=== PATIENT | female | born 1965 | race Caucasian/White ===

== ENCOUNTER 2016-10-06 18:47 | Emergency (ER) | payer MEDICAID, OTHER ==
[~2016-10-06] VITALS: Ht 167.6 cm; Wt 74.0 kg
[2016-10-06 19:45] VITALS: BP 116/82
[2016-10-06] MEDS ORDERED: ALBUTEROL/IPRATROPIUM 2.5MG/0.5MG, 3 ML ONE ×2 (19:54→20:05)
[2016-10-06] MEDS: ALBUTEROL/IPRATROPIUM 2.5MG/0.5MG, 3 ML NPPB SCH ×2 (20:03→20:09)
[2016-10-06 20:20] LABS: HEMATOCRIT 45.8 % (34.6-47.8); HEMOGLOBIN 15.5 g/dL (11.7-16.4); WHITE BLOOD COUNT 7.8 x10^3/uL (3.4-10)
[2016-10-06 20:29] LABS: BLOOD UREA NITROGEN 11 mg/dL (7-18)
== END 2016-10-06 21:14 | disposition home or self-care (01) ==
LOC: ED 21:07
DX: J45.31 Mild persistent asthma with (acute) exacerbation (principal); Z87.891 Personal history of nicotine dependence
CPT/HCPCS: 36415; 71020; 80048; 82040; 85025; 93005; 94640; 99285; J7512; J7620

== ENCOUNTER 2018-02-23 18:04 | Emergency (ER) | payer MEDICAID ==
[~2018-02-23] VITALS: Ht 167.6 cm; Wt 69.4 kg
[2018-02-23] MEDS ORDERED: ALBUTEROL/IPRATROPIUM 2.5MG/0.5MG, 3 ML NPPB ONE (18:30)
[2018-02-23] MEDS ORDERED: ALBUTEROL/IPRATROPIUM 2.5MG/0.5MG, 3 ML ONE (18:51)
[2018-02-23] MEDS ORDERED: ALBUTEROL/IPRATROPIUM 2.5MG/0.5MG, 3 ML NPPB SCH (19:00)
[2018-02-23] MEDS ORDERED: ALBUTEROL/IPRATROPIUM 2.5MG/0.5MG, 3 ML NPPB PRN (19:00)
[2018-02-23] MEDS ORDERED: INHALER (19:01)
[2018-02-23 19:11] VITALS: BP 102/47
[2018-02-23] MEDS ORDERED: BUDESONIDE 0.5 MG/2 ML INHA ONE (19:19)
[2018-02-23] MEDS ORDERED: ALBUTEROL SULFATE 2.5MG/0.5ML ONE (19:19)
[2018-02-23] MEDS ORDERED: BUDESONIDE 0.5 MG/2 ML INHA INH ONE (19:30)
[2018-02-23] MEDS ORDERED: ALBUTEROL SULFATE 2.5 MG/3 ML NPPB PRN (19:30)
== END 2018-02-23 20:38 | disposition home or self-care (01) ==
LOC: ED 20:32
DX: J45.41 Moderate persistent asthma with (acute) exacerbation (principal); Z87.891 Personal history of nicotine dependence
CPT/HCPCS: 71046; 94640; 99284; J7512; J7613; J7620

== ENCOUNTER 2018-05-23 23:45 | Emergency (ER) | payer MEDICAID ==
[~2018-05-23] VITALS: Ht 167.6 cm; Wt 70.1 kg
[~2018-05-23 23:45] MED LIST: INHALER
--- NOTE | 2018-05-24 00:56 | NUR ---
LOW BACK PAIN "I HURT MYSELF AT WORK YESTERDAY." PT ALSO REPORTS A COUGH "I HAVE ASHTMA. I CAN TASTE THE INFECTION." PT REPORTS SHE WAS ABX PER TRIAGE NOTE
[2018-05-24] MEDS ORDERED: KETOROLAC 30 MG/1 ML ONE (01:21)
[2018-05-24] MEDS ORDERED: CYCLOBENZAPRINE 10 MG TABLET ONE (01:21)
[2018-05-24] MEDS ORDERED: HYDROcodone/APAP 5/325 TABLET ONE (01:22)
[2018-05-24 01:27] VITALS: BP 106/81
[2018-05-24] MEDS ORDERED: CYCLOBENZAPRINE 10 MG TABLET PO ONE (01:30)
[2018-05-24] MEDS ORDERED: KETOROLAC 30 MG/1 ML IM ONE (01:30)
[2018-05-24] MEDS ORDERED: HYDROcodone/APAP 5/325 TABLET PO ONE (01:30)
== END 2018-05-24 02:10 | disposition home or self-care (01) ==
LOC: ED 05-24 01:10
DX: S39.012A Strain of muscle, fascia and tendon of lower back, initial encounter (principal); J45.909 Unspecified asthma, uncomplicated; X58.XXXA Exposure to other specified factors, initial encounter; Y93.89 Activity, other specified; Y92.89 Other specified places as the place of occurrence of the external cause; Y99.8 Other external cause status
CPT/HCPCS: 96372; 99283; J1885

== ENCOUNTER 2018-09-09 05:47 | Emergency (ER) | payer MEDICAID ==
[~2018-09-09] VITALS: Ht 167.6 cm; Wt 67.7 kg
[2018-09-09 05:48] VITALS: BP 131/87
[2018-09-09] MEDS ORDERED: PROPARACAINE OPHTH 0.5%, 15ML ONE (06:15)
[2018-09-09] MEDS ORDERED: FLUORESCEIN OPHTHALMIC 1 MG STRIP ONE (06:15)
--- NOTE | 2018-09-09 07:29 | NUR ---
Patient/Caregiver given discharge instructions and they have confirmed that they understand the instructions. Patient ambulatory with steady gait. PT WITH ALL BELONGINGS ON D/C
== END 2018-09-09 07:30 | disposition home or self-care (01) ==
LOC: ED 06:10
DX: H10.31 Unspecified acute conjunctivitis, right eye (principal); H57.11 Ocular pain, right eye
CPT/HCPCS: 99282

== ENCOUNTER 2019-01-19 12:22 | Emergency (ER) | payer MEDICAID ==
[~2019-01-19] VITALS: Ht 165.1 cm; Wt 68.8 kg
[2019-01-19 12:29] VITALS: BP 116/65
--- NOTE | 2019-01-19 13:08 | NUR ---
IMPROVEMENT ANALYST: PT CALLED FOR ROOM, NO ANSWER
--- NOTE | 2019-01-19 13:20 | NUR ---
BUNDLE SORTER: CALLED FOR ROOM, NO ANSWER
--- NOTE | 2019-01-19 13:50 | NUR ---
auditor in charge relief: called x 3 no answer at this time
== END 2019-01-19 14:10 | disposition left against medical advice (07) ==
LOC: ED 13:50
DX: R06.02 Shortness of breath (principal); Z53.21 Procedure and treatment not carried out due to patient leaving prior to being seen by health care provider
CPT/HCPCS: 93005

== ENCOUNTER 2019-03-12 13:48 | Emergency (ER) | payer SELFPAY ==
[~2019-03-12] VITALS: Ht 167.6 cm; Wt 70.4 kg
[2019-03-12] MEDS ORDERED: albuterol (14:03)
--- NOTE | 2019-03-12 14:03 | NUR ---
Pt presents to ED with c/o worsening of asthma today with no relief from home albuterol nebulizer. Pt states she is out of her rescue inhaler. Pt sitting tripod on gurney with 2 L NC on to maintain pulse ox sats above 90%. Pt states, "I need some time before I can change into the gown." Pt denies cp, n/v/d, diaphoresis, or trauma. Call light within reach.
[2019-03-12] MEDS ORDERED: ALBUTEROL SULFATE 2.5 MG/3 ML ONE (14:17)
--- NOTE | 2019-03-12 14:22 | NUR ---
RT at bedside at this time. Pt connected to diagnostic cardiac sonographer, NIBP cuff, and continous pulse ox monitor. No needs expressed at this time. Call light within reach.
[2019-03-12] MEDS ORDERED: ALBUTEROL SULFATE 2.5 MG/3 ML NPPB ONE (14:30)
--- NOTE | 2019-03-12 14:45 | NUR ---
Pt refusing chest x ray at this time. EDMD aware.
[2019-03-12 15:56] VITALS: BP 134/87
--- NOTE | 2019-03-12 15:56 | NUR ---
Patient given discharge instructions and they have confirmed that they understand the instructions. Patient ambulatory with steady gait. Pt left d/c paperwork, Rx, and all personal belongings. No needs expressed at this time.
== END 2019-03-12 16:04 | disposition home or self-care (01) ==
LOC: ED 15:50
DX: J45.41 Moderate persistent asthma with (acute) exacerbation (principal); B34.9 Viral infection, unspecified; Z87.891 Personal history of nicotine dependence
CPT/HCPCS: 93005; 94640; 99283; J7512; J7613

== ENCOUNTER 2019-03-17 06:15 | Emergency (ER) | payer MEDICAID ==
[~2019-03-17] VITALS: Ht 167.6 cm; Wt 70.7 kg
[~2019-03-17 06:15] MED LIST changes: +albuterol
--- NOTE | 2019-03-17 06:37 | NUR ---
Patient presents to ER with SOB. Patient states she has a hx of asthma. Her SOB started this morning and she does not have any more meds to treat it. She was here on Wednesday for the same. Patient has substernal CP associated with her SOB. She states it feels tight only when she's struggling to breath. Patient is taking shallow breaths. Skin PWD.
--- NOTE | 2019-03-17 06:49 | NUR ---
Gave report to GEOVANNI Francis.
[2019-03-17] MEDS ORDERED: ALBUTEROL/IPRATROPIUM 2.5MG/0.5MG, 3 ML ONE (06:56)
--- NOTE | 2019-03-17 06:57 | NUR ---
RECEIVED BEDSIDE REPORT FROM GEOVANNI JEFF. KIMBERLY. PT SITTING ON [facility]. PER REPORT PT WAS HERE WEDNESDAY FOR SAME, ASTHMA EXACERBATION. PT STATED SHE CAN'T AFFORD HER MEDICATIONS. RT BEDSIDE.
[2019-03-17] MEDS: ALBUTEROL/IPRATROPIUM 2.5MG/0.5MG, 3 ML NPPB SCH ×2 (06:58→06:59)
[2019-03-17] MEDS ORDERED: BUDESONIDE 0.5 MG/2 ML INHA ONE (07:00)
--- NOTE | 2019-03-17 07:25 | NUR ---
PT STATES "I FEEL GREAT AFTER THE TREATMENT. THANK YOU." PT EDUCATED REGARDING CARE CHEST. NADN. NO OTHER NEEDS REQUESTED AT THIS TIME. VSS.
[2019-03-17 07:28] VITALS: BP 142/94
[2019-03-17] MEDS ORDERED: BUDESONIDE 0.5 MG/2 ML INHA INH ONE (07:30)
--- NOTE | 2019-03-17 07:41 | NUR ---
RADIOLOGY REPORTS THAT PT REFUSES CHEST XRAY.
--- NOTE | 2019-03-17 08:51 | NUR ---
late entry for 0841 Patient/Caregiver given discharge instructions and they have confirmed that they understand the instructions. Patient ambulatory with steady gait. pt left with all personal belongings.
== END 2019-03-17 08:52 | disposition home or self-care (01) ==
LOC: ED 06:53
DX: J45.41 Moderate persistent asthma with (acute) exacerbation (principal)
CPT/HCPCS: 94640; 99283; J7512; J7620; J7626

== ENCOUNTER 2019-03-26 12:17 | Emergency (ER) | payer MEDICAID ==
[~2019-03-26] VITALS: Ht 167.6 cm; Wt 70.0 kg
[2019-03-26] MEDS ORDERED: ALBUTEROL/IPRATROPIUM 2.5MG/0.5MG, 3 ML NPPB ONE (13:00)
[2019-03-26 13:28] LABS: RAPID INFLUENZA A Negative (Negative); RAPID INFLUENZA B Negative (Negative)
[2019-03-26] MEDS ORDERED: ALBUTEROL/IPRATROPIUM 2.5MG/0.5MG, 3 ML ONE (13:39)
[2019-03-26 13:56] VITALS: BP 98/63
--- NOTE | 2019-03-26 13:57 | NUR ---
TASK RN: PT RESTING IN JERONIMO LEE NOTED. PT YELLING AT RN, "I CAME HERE TO FEEL BETTER AND YOU GUYS HAVEN'T DONE ANYTHING!". RESPIRATIONS EVEN AND UNLABORED, SPO2 >90% ON RA. PT SPEAKING IN FULL SENTENCES WO DIFFICULTY. FRIEND AT BEDSIDE. PT MADE AWARE OF POC (RESULTS/RECHECK); PT DEMONSTRATES UNDERSTANDING.
--- NOTE | 2019-03-26 14:21 | NUR ---
TASK RN: DC EDUCATION PROVIDED, PT DEMONSTRATES UNDERSTANDING. PT AMBUALTED STEADILY TO DC WITH RN AND FRIEND.
== END 2019-03-26 14:23 | disposition home or self-care (01) ==
LOC: ED 13:38
DX: J18.1 Lobar pneumonia, unspecified organism (principal); J98.01 Acute bronchospasm; J45.909 Unspecified asthma, uncomplicated
CPT/HCPCS: 71046; 87400; 94640; 99284

== ENCOUNTER 2019-04-14 19:15 | Emergency (ER) | payer MEDICAID ==
--- NOTE | 2019-04-14 20:06 | NUR ---
NO ANSWER TO TRIAGE CALL
--- NOTE | 2019-04-14 20:14 | NUR ---
NO ANSWER TO TRIAGE CALL X2
--- NOTE | 2019-04-14 20:24 | NUR ---
NO ANSWER TO TRIAGE CALL X3
--- NOTE | 2019-04-14 20:25 | NUR ---
removed from system under "eloped status" after three fail to answer triage call(s)
== END 2019-04-14 20:49 | disposition left against medical advice (07) ==
LOC: ED 20:43
DX: J18.9 Pneumonia, unspecified organism (principal); Z53.21 Procedure and treatment not carried out due to patient leaving prior to being seen by health care provider

== ENCOUNTER 2019-04-14 23:02 | Emergency (ER) | payer MEDICAID ==
[~2019-04-14] VITALS: Ht 165.1 cm; Wt 69.8 kg
[2019-04-14 23:05] VITALS: BP 141/91
== END 2019-04-15 00:19 | disposition home or self-care (01) ==
LOC: ED 04-15 00:13
DX: J45.909 Unspecified asthma, uncomplicated (principal); J20.8 Acute bronchitis due to other specified organisms; Z87.891 Personal history of nicotine dependence
CPT/HCPCS: 71046; 99283

== ENCOUNTER 2019-08-22 15:02 | Emergency (ER) | payer MEDICAID ==
[~2019-08-22] VITALS: Ht 172.7 cm; Wt 58.0 kg
[2019-08-22 15:10] VITALS: BP 115/50
--- NOTE | 2019-08-22 16:00 | NUR ---
pt back to room
[2019-08-22] MEDS ORDERED: HOME NEBULIZER INH (16:22)
--- NOTE | 2019-08-22 16:23 | NUR ---
ASSUMED PT CARE. BP AND SP02 MONITORING PLACED. PT WITH AUDIBLE WHEEZING NOTED AND RHONCHI T/O. RA SP02 94%, RR 18. CALL LIGHT W/I REACH.
--- NOTE | 2019-08-22 16:37 | NUR ---
PT ELOPED AT THIS TIME.
== END 2019-08-22 16:41 | disposition left against medical advice (07) ==
LOC: ED 16:35
DX: R06.02 Shortness of breath (principal); Z53.21 Procedure and treatment not carried out due to patient leaving prior to being seen by health care provider
CPT/HCPCS: 93005

== ENCOUNTER 2019-09-29 22:52 | Emergency (ER) | payer MEDICAID ==
[~2019-09-29] VITALS: Ht 165.1 cm; Wt 72.3 kg
[~2019-09-29 22:52] MED LIST changes: +HOME NEBULIZER INH
[2019-09-29 22:55] VITALS: BP 103/61
[2019-09-30 00:22] LABS: BASOPHILS # (AUTO) 0.04 x10^3/uL (0-0.1); BASOPHILS % (AUTO) 1 % (0-1); EOSINOPHILS # (AUTO) 0.54 x10^3/uL (0-0.4); EOSINOPHILS % (AUTO) 8 % (1-7); LYMPHOCYTES # (AUTO) 3.58 x10^3/uL (1-3.4); LYMPHOCYTES % (AUTO) 54 % (22-44); MD NO; MEAN CORPUSCULAR HEMOGLOBIN 31.2 pg (27.0-34.8); MEAN CORPUSCULAR HGB CONC 33.3 g/dL (32.4-35.8); MEAN CORPUSCULAR VOLUME 93.8 fL (80-100); MEAN PLATELET VOLUME 7.5 fL (7.4-10.4); MONOCYTES # (AUTO) 0.45 x10^3/uL (0.2-0.8); MONOCYTES % (AUTO) 7 % (2-9); NEUTROPHILS # (AUTO) 2.05 x10^3/uL (1.8-6.8); NEUTROPHILS % (AUTO) 31 % (42-75); PLATELET COUNT 295 x10^3/uL (130-400); RED BLOOD COUNT 4.44 x10^6/uL (3.82-5.3); RED CELL DISTRIBUTION WIDTH 13.4 % (9.6-15.2)
[2019-09-30 00:29] LABS: ANION GAP 7 mmol/L (5-15); CHLORIDE 109 mmol/L (98-107); CREATININE 0.99 mg/dL (0.55-1.02)
--- NOTE | 2019-09-30 01:02 | NUR ---
PT NOT IN LOBBY WHEN CALLED FOR ROOM
--- NOTE | 2019-09-30 01:12 | NUR ---
PT NOT IN LOBBY AT THIS TIME.
== END 2019-09-30 01:35 | disposition left against medical advice (07) ==
LOC: ED 09-30 01:29
DX: R06.00 Dyspnea, unspecified (principal); R20.0 Anesthesia of skin; R94.31 Abnormal electrocardiogram [ECG] [EKG]
CPT/HCPCS: 36415; 71045; 72125; 80048; 85025; 93005; 99285

== ENCOUNTER 2019-09-30 21:44 | Emergency (ER) | payer MEDICAID ==
[~2019-09-30] VITALS: Ht 165.1 cm; Wt 72.8 kg
[2019-09-30 21:47] VITALS: BP 138/81
[2019-09-30] MEDS ORDERED: METHOCARBAMOL 750 MG TABLET ONE (22:08)
[2019-09-30] MEDS ORDERED: KETOROLAC 30 MG/1 ML ONE (22:10)
--- NOTE | 2019-09-30 22:15 | NUR ---
MEDS ADMIN PER APR.
[2019-09-30] MEDS ORDERED: KETOROLAC 30 MG/1 ML IM ONE (22:30)
[2019-09-30] MEDS ORDERED: METHOCARBAMOL 750 MG TABLET PO ONE (22:30)
== END 2019-09-30 22:25 | disposition home or self-care (01) ==
LOC: ED 22:14
DX: M47.812 Spondylosis without myelopathy or radiculopathy, cervical region (principal); M48.02 Spinal stenosis, cervical region; M79.622 Pain in left upper arm; J45.909 Unspecified asthma, uncomplicated; R20.2 Paresthesia of skin; M54.2 Cervicalgia; Z87.891 Personal history of nicotine dependence
CPT/HCPCS: 96372; 99283; J1885

== ENCOUNTER 2019-11-27 12:38 | Emergency (ER) | payer MEDICAID ==
[~2019-11-27] VITALS: Ht 167.6 cm; Wt 70.5 kg
[2019-11-27] MEDS ORDERED: ALBUTEROL/IPRATROPIUM 2.5MG/0.5MG, 3 ML ONE (13:02)
--- NOTE | 2019-11-27 13:06 | NUR ---
1 word sentence (poor breath sounds throughout. significant wheezing) Provider to bedside to admin 1 duo neb, 1 albuterol neb, po steroids and reassess
--- NOTE | 2019-11-27 13:06 | NUR ---
Medicated per provider verbal order with 1 duoneb nebulizer treatment
[2019-11-27 13:07] VITALS: BP 135/92
[2019-11-27] MEDS ORDERED: ALBUTEROL SULFATE 2.5 MG/3 ML ONE (13:20)
--- NOTE | 2019-11-27 13:29 | NUR ---
duoneb complete- Breath sounds now audible to all bases. Patient report "I feel much better." pox 97% Medicated with po prednisone then albuterol neb per emar Provider to bedside-plan to d/c shortly
[2019-11-27] MEDS ORDERED: ALBUTEROL/IPRATROPIUM 2.5MG/0.5MG, 3 ML NEB ONE (13:30)
[2019-11-27] MEDS ORDERED: ALBUTEROL SULFATE 2.5MG/0.5ML NPPB ONE (13:30)
--- NOTE | 2019-11-27 13:32 | NUR ---
break RN note: pt reassessed by EDMD Danuta, pt to be discharged after reassessment following duoneb. per EDMD, pt appears greatly improved.
--- NOTE | 2019-11-27 13:51 | NUR ---
pt a&o, resps even and unlabored, able to speak in full sentences without difficulty. pt states she feels much better. pt given dc instructions and script, educated regarding rx for nebulizer and predisone. pt ambulatory out via waitroom with steady gait, nadn at dc.
== END 2019-11-27 13:52 | disposition home or self-care (01) ==
LOC: ED 13:03
DX: J45.41 Moderate persistent asthma with (acute) exacerbation (principal); Z87.891 Personal history of nicotine dependence
CPT/HCPCS: 94640; 99284; J7512

== ENCOUNTER 2019-12-24 15:30 | Emergency (ER) | payer MEDICAID ==
[~2019-12-24] VITALS: Ht 167.6 cm; Wt 69.0 kg
[2019-12-24] MEDS ORDERED: ONDANSETRON ODT 4 MG PO ONE (16:00)
[2019-12-24] MEDS ORDERED: KETOROLAC 30 MG/1 ML IM ONE (16:00)
[2019-12-24] MEDS ORDERED: ONDANSETRON ODT 4 MG ONE (16:06)
[2019-12-24] MEDS ORDERED: KETOROLAC 30 MG/1 ML ONE (16:06)
--- NOTE | 2019-12-24 16:20 | NUR ---
PT C/O MUSCLE ACHES, HEADACHE, SORE THROAT, ABD PAIN, NAUSEA, VOMITING, AND DIARRHEA X 5 DAYS. PT RECENTLY AROUND PEOPLE WHO TESTED POSITIVE FOR COVID.
[2019-12-24 16:29] VITALS: BP 128/71
--- NOTE | 2019-12-24 16:29 | NUR ---
PT MEDICATED PER MAR
--- NOTE | 2019-12-24 16:53 | NUR ---
PT STATES SOME IMPROVEMENT SINCE MEDICATED. AMBULATED WITHOUT ASSITANCE FROM ER
== END 2019-12-24 16:55 | disposition home or self-care (01) ==
LOC: ED 16:19
DX: U07.1 COVID-19 (principal); J45.909 Unspecified asthma, uncomplicated; Z87.891 Personal history of nicotine dependence
CPT/HCPCS: 36415; 87635; 99283; J1885; Q0162